=== PATIENT | male | born 1960 | race Caucasian/White ===

== ENCOUNTER 2016-12-01 16:06 | Emergency (ER) | payer MEDICARE, MEDICAID ==
[~2016-12-01] VITALS: Ht 190.5 cm; Wt 113.6 kg
[~2016-12-01 16:06] MED LIST: METO25TA7 PO; SPIR50TA PO
[2016-12-01 16:08] VITALS: Ht 190.5 cm; Wt 113.6 kg
[2016-12-01 18:01] LABS: ADD SCAN DIFF NO
[2016-12-01] MEDS ORDERED: ONDANSETRON 4 MG INJ IV STA (18:10)
[2016-12-01] MEDS ORDERED: morphine 4 MG/ML VIAL IV STA (18:10)
[2016-12-01 18:16] LABS: BASOPHILS % 0.3 % (0.0-2.0); EOSINOPHILS # 0.2 10^3/ul (0.0-0.5); EOSINOPHILS % 2.7 % (0.0-7.0); HEMATOCRIT 37.6 % (42.0-52.0); HEMOGLOBIN 12.2 g/dl (14.0-18.0); LYMPHOCYTES # 0.9 10^3/ul (0.8-2.9); LYMPHOCYTES % 13.7 % (15.0-51.0); MEAN CORPUSCULAR HEMOGLOBIN 31.1 pg (29.0-33.0); MEAN CORPUSCULAR HGB CONC 32.4 g/dl (32.0-37.0); MEAN CORPUSCULAR VOLUME 95.9 fl (82.0-101.0); MEAN PLATELET VOLUME 10.2 fl (7.4-10.4); MONOCYTE # 0.8 10^3/ul (0.3-0.9); MONOCYTES % 12.4 % (0.0-11.0); NEUTROPHIL # 4.7 10^3/ul (1.6-7.5); NEUTROPHILS % 70.5 % (39.0-77.0); PLATELET COUNT 139 10^3/UL (140-415); RED BLOOD COUNT 3.92 10^6/ul (4.70-6.10); WHITE BLOOD COUNT 6.7 10^3/ul (4.8-10.8)
[2016-12-01 18:20] LABS: INR 1.03; PROTIME 13.5 Sec (12.2-14.2); PT RATIO 1.1
[2016-12-01 18:21] LABS: PARTIAL THROMBOPLASTIN TIME 28.7 Sec (25.0-35.0)
--- NOTE | 2016-12-01 19:04 | ERD ---
ER Documentation Chief Complaint Date/Time DATE: 12/01/16 TIME: 18:56 Chief Complaint intermittent 9/10 bilat leg pain x 1 day and swelling x 2 months HPI This is a very pleasant 56-year-old male with remote history of prostate carcinoma with prostatectomy one year ago. The patient also has had a large ventral hernia repair with mesh and omentectomy performed in 2014. The patient has seen the vascular surgeon Dr. Fernandes roughly 1 month ago on November 03, 2016. The patient was being treated at the [facility] for severe bilateral lower extremity edema with an unclear etiology. The patient had an MR venogram, CT angiogram that showed no venous or lymphatic obstruction. The patient had been referred for massage therapy due to chronic dermatitis and inflammation. The patient denies any fever shaking or chills. He indicates that he had gone to the [facility] prevent[facility] clinic today for a scheduled appointment but got there late in the clinic was already closed. He indicates that over the past 3 months he has had intermittent pain which he describes as a stinging-like sensation in the bilateral lower extremities that progressively worsened over the past 24 hours. He states he has no shortness of breath at rest or exertion and no cramping like sensation in the bilateral lower extremities. Given that the amputation prevention clinic was closed the patient came to the emergency department to be further evaluated. He stated he would like to have his blood checked and receive a pain shot. He has another scheduled appointment at the wound care clinic with Dr. Fernandes on Sunday, December 06, 5 days from today. ROS All systems reviewed and are negative except as per history of present illness. Medications Home Meds Reported Medications Spironolactone* (Aldactone*) 50 Mg Tablet, 50 MG PO DAILY, TAB 07/30/14 Metoprolol Succinate* (Toprol XL*) 25 Mg Tab.sr.24h, 25 MG PO DAILY, TAB 07/30/14 Allergies Allergies: Coded Allergies: No Known Allergy (Unverified , 12/01/16) PMhx/Soc History of Surgery: Yes (PROSTATE REMOVED) Anesthesia Reaction: No Hx Neurological Disorder: No Hx Respiratory Disorders: No Hx Cardiac Disorders: Yes (HTN) Hx Psychiatric Problems: No Hx Miscellaneous Medical Probl: Yes (PROSTATE CA, BI-LATERAL LE LYMPHEDEMA ) Hx Alcohol Use: Yes Hx Substance Use: No Hx Tobacco Use: No Smoking Status: Never smoker Physical Exam Vitals Vital Signs Date Time Temp Pulse Resp B/P Pulse Ox O2 Delivery O2 Flow Rate FiO2 12/01/16 18:04 82 18 132/77 100 Room Air 12/01/16 16:08 98.2 85 18 123/72 96 Physical Exam Constitutional:Well-developed. Well-nourished. HEENT:Normocephalic. Atraumatic.Pupils were equal round reactive to light. Moist mucous membranes.No tonsillar exudates. Neck: No nuchal rigidity. No lymphadenopathy. No posterior cervical spine tenderness or step-offs. Respiratory: Not using accessory muscles of respiration.Lungs were clear to auscultation bilaterally. No rhonchi. No rales. No wheezing. Cardiovascular: Regular rate regular rhythm.No murmurs. No rubs were appreciated.S1, S2 normal. Distal pulses are palpable 2+ bilaterally. GI: Abdomen was soft. Nontender. Non Distended. No pulsatile abdominal masses or bruits. No rebound. No guarding. Bowel sounds were present and normal. Muscle skeletal: Full range of motion of both the upper and lower extremities bilaterally.Normal muscle tone. Patient has severe 2+ pitting lymphedema of the bilateral lower extremities. No calf tenderness or asymmetrical swelling to Skin: No petechia, no purpura. No lesions on the palms or the soles of the feet. No maculopapular rash. Severe lymphedema with no blistering, no subcutaneous emphysema no warmth of the bilateral lower extremities. There is erythremia of the circumferential bilateral lower extremities and compartments are soft. NEURO: Patient was alert, awake, orientated x3.No facial droop. Gait observed and normal with no ataxia.Speech had regular rate and rhythm. No focal neurological deficits. Result Diagram: 12/01/16 1745 Results 24 hrs Laboratory Tests Test 12/01/16 17:45 White Blood Count 6.710^3/ul Red Blood Count 3.9210^6/ul Hemoglobin 12.2g/dl Hematocrit 37.6% Mean Corpuscular Volume 95.9fl Mean Corpuscular Hemoglobin 31.1pg Mean Corpuscular Hemoglobin Concent 32.4g/dl Red Cell Distribution Width 14.0% Platelet Count 80665^3/UL Mean Platelet Volume 10.2fl Neutrophils % 70.5% Lymphocytes % 13.7% Monocytes % 12.4% Eosinophils % 2.7% Basophils % 0.3% Nucleated Red Blood Cells % 0.0/100WBC Neutrophils # 4.710^3/ul Lymphocytes # 0.910^3/ul Monocytes # 0.810^3/ul Eosinophils # 0.210^3/ul Basophils # 0.010^3/ul Nucleated Red Blood Cells # 0.010^3/ul Prothrombin Time 13.5Sec Prothrombin Time Ratio 1.1 INR International Normalized Ratio 1.03 Activated Partial Thromboplast Time 28.7Sec Current Medications Medications (Trade) Dose Ordered Sig/Joe Route PRN Reason Start Time Stop Time Status Last Admin Dose Admin Morphine Sulfate (morphine) 4 mg ONCE STAT IV 12/01/16 18:10 12/01/16 18:13 DC 12/01/16 18:31 Ondansetron HCl (Zofran Inj) 4 mg ONCE STAT IV 12/01/16 18:10 12/01/16 18:13 DC 12/01/16 18:31 Procedures/MDM This is a very pleasant male with a known history of chronic lymphedema of the bilateral lower extremities. He has undergone significant studies and follow- up with the vascular surgeon Dr. Fernandes. The patient indicated he has been dealing with this for over one year. Given that this was not an acute process and no physical exam findings to suggest an acute deep vein thrombosis or arterial or vascular insufficiency I did not feel is necessary to perform ultrasound studies or further diagnostic imaging. Ancillary laboratory work showed no leukocytosis. The patient had asked for PSA to be performed and he was given the results which will be provided to his primary care physician. 12 Lead EKG tracing ordered and reviewed by myself showed: Normal sinus rhythm of 81 bpm and no arrhythmia. AL interval normal. QRS duration normal. No ST segment elevation No ST segment depression. No changes consistent with acute ischemia. The patient did indicate that after receiving the intravenous morphine and Zofran his pain resolved. He did state he felt comfortable being discharged home and instructed the patient and his , that they need to follow-up at the amputation prevention center for the scheduled appointment on Sunday. They were also instructed that they can return to the emergency department at any time if there is worsening of her symptoms. The patient was discharged home in fair condition. They were instructed to return to the emergency department at any time if there was any worsening of their condition. The patient stated they would follow up with their PCP in the next 24-48 hours to initiate a suitable medication regimen under the care of their PCP as well as to allow their PCP to monitor any drug reactions. The patient was discharged home with prescriptions after they gave informed consent to the new medication. They were also fully informed by myself on the adverse effects and adverse drug interactions in order to provide adequate safeguards to prevent possible adverse reactions to medications. Departure Diagnosis: Primary Impression: Lymphedema of both lower extremities Condition: Fair Patient Instructions: Peripheral Edema, Bilateral, Lymphedema Referrals: CARMELO FERNANDES MD (PCP) TONYA TILLMAN Dec 01, 2016 19:04
[2016-12-01] MEDS ORDERED: POTA10TA97 PO (19:05)
[2016-12-01] MEDS ORDERED: LORA0.5T PO (19:05)
[2016-12-01] MEDS ORDERED: METO-429 PO (19:06)
[2016-12-01] MEDS ORDERED: FURO40TA4 PO (19:08)
[2016-12-01] MEDS ORDERED: LOSA25TA5 PO (19:13)
[2016-12-01] MEDS ORDERED: AZEL6DRO2 BOTH EYES (19:13)
[2016-12-01 19:22] LABS: ALANINE AMINOTRANSFERASE 27 IU/L (13-69); ALBUMIN/GLOBULIN RATIO 1.28; ALKALINE PHOSPHATASE 136 IU/L (42-121); ANION GAP 23 (8-16); ASPARTATE AMINO TRANSFERASE 36 IU/L (15-46); BILIRUBIN,INDIRECT 1.3 mg/dl (0-1.1); BILIRUBIN,TOTAL 1.3 mg/dl (0.2-1.3); BLOOD UREA NITROGEN 20 mg/dl (7-20); CALCIUM 9.9 mg/dl (8.4-10.2); CARBON DIOXIDE 26 mmol/L (21-31); CHLORIDE 98 mmol/L (97-110); CREATININE 0.88 mg/dl (0.61-1.24); GLUCOSE 110 mg/dl (70-220); POTASSIUM 3.5 mmol/L (3.5-5.1); SODIUM 143 mmol/L (135-144); TOTAL PROTEIN 8.9 g/dl (6.1-8.1)
[2016-12-01 19:38] LABS: TROPONIN-I < 0.012 ng/ml (0.00-0.12)
[2016-12-01 20:28] VITALS: BP 132/78; PULSE 80; RESP 18
== END 2016-12-01 20:30 | disposition home or self-care (01) ==
LOC: E/R 16:06
DX: I89.0 Lymphedema, not elsewhere classified (principal); M79.605 Pain in left leg; I10 Essential (primary) hypertension; Z85.46 Personal history of malignant neoplasm of prostate
CPT/HCPCS: 80053; 84153; 84154; 84484; 85025; 85610; 85730; 96374; 96375; 99284; J2270; J2405; 93005